=== PATIENT | female | born 1955 | race Caucasian/White ===

== ENCOUNTER 2016-09-07 08:46 | Day surgery (SDC) | payer BC ==
[2016-09-01 12:54] VITALS: BMI 29.2
--- NOTE | 2016-09-04 10:03 | HP ---
Admitting History and Physical - Primary Care Physician PCP: Hollis Venegas - Admission Chief Complaint: left breast cancer History of Present Illness: Patient is a 61 yo female noted to have bilateral breast asymmetries (LLQ and RUIQ) on screening mammo. Patient was noted to have left 6 oclock .8 and .9 cm retroareolar masses on US. Right US was c/w 12 and 2 oclock cyst ( Birads 3). Patient underwent US core bx of the left 6 and 7 oclock lesions. Both were c/w poorly dif invasive ductal ca. ER pos/ HI negative/ Her 2 positive. The MRI was c/w known cancer and negative for multifocal and contralateral dz. Patient is presenting for left WE, SNBx poss ANDx and mastopexy. History Source: Patient Limitations to Obtaining History: No Limitations - Past Medical History Gastrointestinal: Yes: Inflamatory Bowel Disease (Ulcerative colitis at age 32 recent bx of polyp path pending) - Past Surgical History Past Surgical History: Yes: Breast Biopsy (exc of left breast mass 2009-benign) , (4) - Advance Directives Advance Directives: Yes: Health Care Proxy - Smoking History Smoking history: Never smoked Have you smoked in the past 12 months: No - Alcohol/Substance Use Hx Alcohol Use: No Home Medications - Allergies Allergies/Adverse Reactions: Allergies Allergy/AdvReac Type Severity Reaction Status Date / Time No Known Allergies Allergy Verified 08/25/16 14:25 - Home Medications Home Medications: Ambulatory Orders L.acidoph,Paracasei, B.lactis [Probiotic] 1 each PO DAILY 09/01/16 Family Disease History - Family Disease History Family Disease History: CA: Grandparent (pat GM breast ca ?age), Sister (Breast ca age 37 BRCA neg no PEDRO) Review of Systems - Review of Systems Constitutional: reports: No Symptoms Cardiovascular: reports: No Symptoms Physical Examination Constitutional: Yes: Well Nourished, Calm Breast(s): Yes: Other (Left breast ecchymosis noted at 6 oclock positiion with palpable swelling. Patient without any other palpable masses or suspicious adenopathy noted bilaterally.) Problem List - Problems (1) Breast cancer, left breast Code(s): C50.912 - MALIGNANT NEOPLASM OF UNSPECIFIED SITE OF LEFT FEMALE BREAST Qualifiers: Breast location: lower inner quadrant of breast Patient gender: female Qualified Code(s): C50.312 - Malignant neoplasm of lower-inner quadrant of left female breast Assessment/Plan Plan: Left breast WE with NL, SNBx, possible ANDx with lympho and mastopexy
[2016-09-07] MEDS ORDERED: MIDAZOLAM HCL 2 MG/2 ML SINGLE DOSE VIAL ONE (13:23)
[2016-09-07] MEDS ORDERED: PROPOFOL 20 ML ONE ×2 (13:23)
[2016-09-07] MEDS ORDERED: ISOSULFAN BLUE 10 MG/ML VIAL SQ ONE (13:37)
[2016-09-07] MEDS ORDERED: ceFAZolin SODIUM 1 GM VIAL ONE (14:00)
[2016-09-07] MEDS ORDERED: ONDANSETRON 4 MG/2 ML VIAL ONE (14:00)
[2016-09-07] MEDS ORDERED: KETOROLAC TROMETHAMINE 30 MG/1 ML VIAL ONE (14:00)
[2016-09-07] MEDS ORDERED: DEXAMETHASONE SOD PHOSPHATE 4 MG/1 ML VIAL ONE (14:00)
[2016-09-07] MEDS ORDERED: PROMETHAZINE HCL 25 MG/1 ML VIAL IVPUSH PRN (14:19)
[2016-09-07] MEDS ORDERED: oxyCODONE HCL 5 MG TABLET PO PRN (14:19)
[2016-09-07] MEDS ORDERED: ONDANSETRON 4 MG/2 ML VIAL IVPUSH PRN (14:19)
[2016-09-07] MEDS ORDERED: LACTATED RINGERS SOLUTION 1,000 ML IV SCH (14:30)
[2016-09-07] MEDS ORDERED: KETOROLAC TROMETHAMINE 30 MG/1 ML VIAL IVPUSH PRN (15:13)
[2016-09-07] MEDS ORDERED: ONDANSETRON 4 MG/2 ML VIAL IVPB PRN (15:13)
[2016-09-07] MEDS ORDERED: GUM MASTIC/STORAX/MSAL/ALCOHOL 1 DRP DROPSBTL MC ONE (15:14)
[2016-09-07] MEDS ORDERED: DEXTROSE 5%-0.45% SALINE 1,000 ML IV SCH (15:15)
[2016-09-07 16:30] VITALS: TEMP 97.8
[2016-09-07] MEDS ORDERED: oxyCODONE HCL 5 MG TABLET ONE (16:34)
[2016-09-07 17:59] VITALS: BP 119/72; PULSE 68
--- NOTE | 2016-09-08 08:28 | OP ---
DATE OF OPERATION: 09/07/2016 PREOPERATIVE DIAGNOSIS: Left breast cancer, overlapping regions. POSTOPERATIVE DIAGNOSIS: Left breast cancer, overlapping regions. PROCEDURE: Left breast partial mastectomy with mammographic needle localization and left axillary sentinel lymph node biopsy with left breast partial tissue transfer. ANESTHESIA: General. PRIMARY SURGEON: Jere Venegas MD AGRICULTURE LABORATORY TECHNICIAN: MARCO Hook. PHYSICIAN FOR PARTIAL TISSUE TRANSFER: Jere Gillis MD, which will be dictated separately. COMPLICATIONS: There were no complications. INDICATIONS: Briefly, the patient is a 61-year-old, G5, P4, postmenopausal white female of [place] and [place] descent. She has a strong family history of her sister who had breast cancer at age 37. The patient was found to have 2 suspicious densities in the left breast at 6 o'clock retroareolar region measuring about 8 mm and 9 mm, which were biopsied in July of 2016, showing infiltrating ductal cancer, which was weakly ER positive, [place] negative, and HIR2-3+. MRI showed the 2 suspicious findings in the left breast, but no multifocal or contralateral disease and no adenopathy. She underwent genetic testing, which turned out to be negative. The 2 lesions were fairly close together and it was felt that she could have a partial mastectomy and she was seen by plastic surgery preoperatively for a tissue transfer closure. The patient was brought in for the procedure on September 07, 2016, and first underwent the lymphoscintigraphy at [facility] and was then brought to the [place] holding area. In the holding area, site verification was made and informed consent was obtained. She had a needle localization of the two clips in the 6 o'clock region of the left breast. DESCRIPTION OF PROCEDURE: She was brought into the operating room and laid on the OR table in the supine position. were placed on the lower extremities prior to induction. She received 1 g of Ancef prior to incision. Both breasts were sterilely prepped and draped in the usual fashion and 3 mL of Lymphosiderin Blue were injected intradermally and peritumor around the needle localization site in the 6 o'clock region of the left breast. The sentinel lymph node biopsy was first performed. An incision was made just below the hair bearing area of the left axilla and dissection was undertaken. Two blue hot lymph nodes were easily found. The first sentinel node had a 10 second gamma count of 9,526 and the second sentinel node had a 10 second gamma count of 4,411. No frozen section was done on these nodes given the Z11 criteria. After removal of these 2 nodes background count was 379. Hemostasis was achieved and the axial wound was closed using interrupted 2-0 plain suture and then the skin was closed using interrupted 3-0 deep dermal Vicryl suture and a running 4-0 subcuticular Biosyn suture. At this point, a wide excision was undertaken around the needle localization site around the 6 o'clock region of the left breast. A slightly vertical and periareolar incision was made around the left breast in the nipple areolar complex. Dissection was undertaken around the needle localization site and wide margins were taken around the wire, all of the way down to the pectoralis major muscle. The specimen was oriented with a long lateral short superior suture and specimen radiographs showed removal of the two clips in question. Superior margins were then taken on the superior, inferior, medial, lateral, deep, and superficial aspects with biopsy sutures marking the biopsy cavity site. Hemostasis was achieved and the wound was copiously irrigated with warm sterile saline. At this point, Dr. Gillis became the primary surgeon. He performed the tissue transfer closure technique by undermining the breast tissue, reapproximating the breast tissue. This will all be dictated separately by plastic surgery. At the end of the procedure, the patient was extubated, awake, and alert, and brought to the post anesthesia care unit in stable condition. She will be discharged home this same day once the discharge criteria are met. All sponge and needle counts were correct at the end of the case. Estimated blood loss is about 30 mL. She was hemodynamically stable throughout. The patient will be discharged home this same day and will follow up in the office in 1 week for formal wound pathology check. She was instructed to keep the current dressing in place for the next 48 hours, at which time she may shower normally. JERE VENEGAS M.D. [id number]
--- NOTE | 2016-09-08 08:41 | OP ---
DATE OF OPERATION: DATE OF DICTATION: 09/08/2016 This is a combined dictation with Dr. Venegas for breast reconstruction. PREOPERATIVE DIAGNOSIS: Acquired chest wall deformity, left breast. POSTOPERATIVE DIAGNOSIS: Acquired chest wall deformity, left breast. OPERATIVE PROCEDURE: Left breast reconstruction with other technique, number [id number]. SURGEON: Jere Gillis MD BELT SEWER SURGEON: MARCO Kumar OPERATIVE INDICATION: Patient was brought to the operating room by Dr. Venegas, where he performed a left breast cancer removal and sentinel lymph node biopsy. Upon completion of the resection, I began the operative reconstruction. The wound was examined. Copious irrigation was performed. Hemostasis was meticulously obtained throughout. I began the procedure by making an incision in the lower pole of the breast skin flap, freeing the tissue from the underlying skin and subcutaneous tissue and incising the margins around the area. This was carried out with the electrocautery throughout the procedure. A mobilization of breast tissue and flaps was created on the inferior, medial, and superior aspects of the breast, and then, rotation of was created. Using 2-0 Vicryl sutures, a reconstruction with other technique was carried out. A rotation advancement flap was advanced into the defect and closed with interrupted 2-0 Vicryl sutures down to the pectoralis major muscle in order to preserve the inframammary fold. Multiple sutures were placed in this area and release of the skin and subcutaneous tissue was also carried out. Multiple layers of sutures were carried out in the deep dermal and subcutaneous tissue using 3-0 Vicryl sutures, and then, the skin and subcutaneous tissue were closed with 4-0 Biosyn suture in interrupted and running fashion. Dry sterile dressings with Mastisol, Steri-Strips, and a compression dressing with a Surgi-Bra were placed. She was awakened, extubated, and transferred to the recovery room in satisfactory condition. She tolerated the procedure well. JERE GILLIS M.D. /[id number]
--- NOTE | 2016-09-12 15:38 | PATH ---
Surgical Pathology Report Patient Name: JESENIA COVINGTON [facility]. Rec. #: [id number] /Age/Gender: 1955 (Age: 61) / F Account: [id number] Location: [facility] AMBUL[facility]ORY Taken: 09/07/2016 Received: 09/07/2016 Reported: 09/12/2016 Physicians: Hollis Venegas M.D. Specimen(s) Received A: LEFT SENTINEL NODE #1 B: LEFT SENTINEL NODE #2 C: LEFT BREAST WIDE EXCISION D: LEFT BREAST LATERAL MARGIN E: LEFT BREAST SUPERIOR MARGIN F: LEFT BREAST INFERIOR MARGIN G: LEFT BREAST MEDIAL MARGIN H: LEFT BREAST DEEP MARGIN I: LEFT BREAST SUPERFICIAL MARGIN Clinical History Invasive Ca, left breast Final Diagnosis A. lymph node, left sentinel #1, excision: One lymph node, negative for metastatic carcinoma (0/1). B. liver, left sentinel #2, excision: One lymph node, negative for metastatic carcinoma (0/1). C. breast, left, wide excision: Invasive ductal carcinoma, poorly differentiated (tubule score: 3/3, nuclear grade: 3/3, mitotic score: 3/3; total Minesh score: 9/9). Invasive carcinoma measures 8 mm in greatest dimension, microscopically. Ductal carcinoma in situ (DCIS), solid and cribriform type, high nuclear grade is present admixed with invasive carcinoma and away from IT as a major component. Invasive carcinoma extends to the anterior/superficial margin along a broad front. DCIS is close to (< 1 mm) the inferior, anterior and lateral margins at a few foci and at 1 mm from the deep margin. see specimens D-I for final margins. Focal Lymphovascular invasion is identified. Prior biopsy site changes are present. Pathologic stage (pTNM): pT1b pn0. See also invasive carcinoma case Summary below. D. breast, left, lateral margin, excision: BENIGN Breast tissue showing intraductal papilloma, proliferative fibrocystic changes and small fibroadenoma. E. breast, left, superior margin, excision: Benign breast tissue. F. breast, left, inferior margin, excision: Ductal carcinoma in situ (DCIS), high nuclear grade. DCIS is focally close to (< 1mm) THE NEW margin. G. breast, left, medial margin, excision: Benign breast tissue showing proliferative fibrocystic changes. H. breast, left, deep margin, excision: invasive ductal carcinoma, poorly differentiated, measuring 3 mm in greatest dimension, microscopically. Ductal carcinoma in situ (DCIS), HIGH nuclear grade. The new margin is uninvolved by carcinoma; invasive carcinoma and DCIS are at 5 mm from the closest new margin. I. breast, left, superficial margin, excision: Invasive ductal carcinoma, poorly differentiated measuring 8 mm in greatest dimension, microscopically. Invasive carcinoma is close to (< 1 mm) AND AT the new margin AT MULTIPLE FOCI. Comments Breast Invasive Carcinoma: Surgical Pathology Cancer Case Summary Based on AJCC/UICC TNM, 7th edition Procedure _X_ Excision with image-guided localization Lymph Node Sampling _X_ [place] lymph node(s) Specimen Laterality _X_ Left Tumor Size: Size of Largest Invasive Carcinoma: 8 mm Tumor Focality _X_ Single focus of invasive carcinoma Macroscopic and Microscopic Extent of Tumor Nipple _X_ Not applicable (excisions less than total mastectomy) Ductal Carcinoma In Situ (DCIS) _X_ DCIS is present _X_ as a major component (>25% of tumor, extensive intraductal component) Histologic Type of Invasive Carcinoma : _X_ Invasive carcinoma of no special type (ductal, not otherwise specified) Histologic Grade: ([place] Histologic Score) Tubular Differentiation _X__Score 3 Nuclear Pleomorphism _X_ Score 3 Mitotic Rate _X_ Score 3 Overall Grade _X_ Grade 3: scores of 8 or 9 (poorly differentiated) Margins _X_ Margin(s) positive for invasive carcinoma: anterior/superficial _X_ Margin(s) close to (< 1 mm) DCIS: inferior Lymph-Vascular Invasion _X__ Present Lymph Nodes Total number of lymph nodes examined (sentinel and nonsentinel): 2 Number of sentinel lymph nodes examined: 2 Number of lymph nodes with macrometastases ( > 2 mm): 0 Number of lymph nodes with micrometastases (>0.2 mm to 2 mm and/or >200cells):0 Number of lymph nodes with isolated tumor cells (=0.2 mm and =200 cells): 0 Extranodal Extension _X_ Not applicable Pathologic Staging (pTNM) Primary Tumor (Invasive Carcinoma): pT1b Regional Lymph Nodes (pN): pN0 (sn) Biomarker Studies Results of ER and SD studies performed on this specimen (block C1 ) at [facility] are as follows: ER (clone [id number] mouse monoclonal antibody by [employer]): < 1 % nuclear staining (Negative). SD (clone16 mouse monoclonal antibody by [employer] : 0 % nuclear staining (Negative). Results of Her2 (IHC) & Ki-67 studies performed on this specimen (block C1 ) at [place], [place] ( [id number] ) are as follows: Her2 IHC (EP3 from [employer], formerly known as [id number], using Posey Polymer Refine detection kit): 3+ (Positive). Ki67: ~80% (High). Time to formalin fixation time is not given and formalin fixation time cannot be accurately determined. Electronically Signed Vicki Isabel M.D. Gross Description A. Received in formalin, labeled "sentinel node #1 left," is a 1.2 x 0.7 x 0.5 cm hurley, irregular lymph node with attached fat. The specimen is bisected and entirely submitted in one cassette. B. Received in formalin, labeled "sentinel node #2 left," is a 1.0 x 0.8 x 0.5 cm hurley, irregular lymph node with attached fat. The specimen is bisected and entirely submitted in one cassette. C. Received in formalin, labeled "left breast wide excision," is a 4.8 x 3.7 x 2.0 cm. hurley-yellow, irregular, portion of fibroadipose tissue with a needle localization wire present. There is a short suture marking the superior aspect and a long suture marking the lateral aspect, per the surgeon. There is no skin or nipple present. The specimen is inked as follows: superior and lateral blue; inferior green; medial yellow; anterior red; deep black. The specimen is serially sectioned from medial to lateral. Sectioning reveals a 1.2 x 1.0 x 0.9 cm hurley, firm ill-defined mass abutting the anterior margin, at 0.3 cm from the deep margin, 0.5 cm from the inferior margin and 1 cm from the superior margin. The remaining margins appear widely clear of the mass. The remaining breast parenchyma displays foci of dense white fibrous tissue. Oxyacetylene Welder sections are submitted in 8 cassettes as follows: 1 to 6- mass with inferior, anterior, deep and superior margins; 7-medial margin; 8-lateral margin. Time to formalin fixation: Not given D. Received in formalin, labeled "lateral margin left breast," is a 1.8 x 1.7 x 0.8 cm irregular portion of fibroadipose tissue with a suture marking the biopsy cavity side, per the surgeon. The new margin is inked green and the specimen is serially sectioned. The specimen is entirely submitted in 2 cassettes. E. Received in formalin, labeled "superior margin left breast," is a 1.7 x 1.4 x 0.7 cm irregular portion of fibroadipose tissue with a suture marking the biopsy cavity side, per the surgeon. The new margin is inked green and the specimen is serially sectioned. The specimen is entirely submitted in 2 cassettes. F. Received in formalin, labeled "inferior margin left breast," is a 2.4 x 1.5 x 0.8 cm irregular portion of fibroadipose tissue with a suture marking the biopsy cavity side, per the surgeon. The new margin is inked green and the specimen is serially sectioned. The specimen is entirely submitted in 2 cassettes. G. Received in formalin, labeled "medial margin left breast," is a 2.3 x 1.2 x 0.5 cm irregular portion of fibroadipose tissue with a suture marking the biopsy cavity side, per the surgeon. The new margin is inked green and the specimen is serially sectioned. The specimen is entirely submitted in 2 cassettes. H. Received in formalin, labeled "deep margin left breast," is a 1.8 x 1.7 x 0.8 cm irregular portion of fibroadipose tissue with a suture marking the biopsy cavity side, per the surgeon. The new margin is inked green and the specimen is serially sectioned. The specimen is entirely submitted in 2 cassettes. I. Received in formalin, labeled "superficial margin left breast," is a 1.3 x 0.8 x 0.5 cm irregular portion of fibroadipose tissue with a suture marking the biopsy cavity side, per the surgeon. The new margin is inked green and the specimen is serially sectioned. The specimen is entirely submitted in one cassette. DL09/08/2016 saudi09/08/2016
== END 2016-09-07 18:00 | disposition home or self-care (01) ==
LOC: FASU 08:46
PROVIDERS: ATTEND Surgery Surgical Oncology
PROC: 0HBU0ZZ Excision of Left Breast, Open Approach (ICD-10-PCS; principal; 2016-09-07 13:30)
PROC: 0HRU07Z Replacement of Left Breast with Autologous Tissue Substitute, Open Approach (ICD-10-PCS; 2016-09-07 13:30)
DX: C50.312 Malignant neoplasm of lower-inner quadrant of left female breast (principal); Z80.3 Family history of malignant neoplasm of breast; M95.4 Acquired deformity of chest and rib
CPT/HCPCS: 19281; 78195-TC; 88307-TC; 88342-TC; 94760; A9541

== ENCOUNTER 2016-09-21 11:58 | Inpatient (IN) | payer BC, OTHER ==
--- NOTE | 2016-09-15 15:26 | HP ---
Admitting History and Physical - Primary Care Physician PCP: Hollis Venegas - Admission Chief Complaint: Left breast cancer S/P wide excision with positive margins 09/07 History of Present Illness: 61 year old postmenapausal female S/P left breast wide excision negative sentenl node biopsy 09/07/2016 with positive margins 8 mm poorly differentiated invasive ductal carcinoma with DCIS on inferior, deep and superficial margins. Her for total mastectomy left breast History Source: Patient Limitations to Obtaining History: No Limitations - Past Medical History Gastrointestinal: Yes: Inflamatory Bowel Disease (Ulcerative colitis at age 32 recent bx of polyp path pending) - Past Surgical History Past Surgical History: Yes: Breast Biopsy (exc of left breast mass 2009-benign) , (4) Additional Past Surgical History: recent polypectomy Left breast wide excision negative sentenel node biopsy 09/07/2016 positive margins DCIS on inferior deep and superficial - Smoking History Smoking history: Never smoked Have you smoked in the past 12 months: No - Alcohol/Substance Use Hx Alcohol Use: No Home Medications - Allergies Allergies/Adverse Reactions: Allergies Allergy/AdvReac Type Severity Reaction Status Date / Time No Known Allergies Allergy Verified 09/07/16 10:00 - Home Medications Home Medications: Ambulatory Orders L.acidoph,Paracasei, B.lactis [Probiotic] 1 each PO DAILY 09/01/16 Oxycodone HCl/Acetaminophen [Percocet 5-325 mg Tablet -] 1 - 2 tab PO Q6H PRN # 30 tablet MDD 6 09/07/16 Family Disease History - Family Disease History Family Disease History: CA: Grandparent (pat GM breast ca ?age), Sister (Breast ca age 37 BRCA neg no PEDRO) Physical Examination Constitutional: Yes: Well Nourished, No Distress Breast(s): Yes: Other (left breast wounds healing well without signs of hematoma or infection .) Problem List - Problems (1) Breast cancer, left breast Code(s): C50.912 - MALIGNANT NEOPLASM OF UNSPECIFIED SITE OF LEFT FEMALE BREAST Qualifiers: Breast location: lower inner quadrant of breast Patient gender: female Qualified Code(s): C50.312 - Malignant neoplasm of lower-inner quadrant of left female breast Assessment/Plan Left breast total mastectomy with reconstruction
[2016-09-18 15:54] VITALS: BMI 25.7
[2016-09-21] MEDS ORDERED: HYDROmorphone *PCA* 10MG/50ML DISP.SYRIN PCA ONE (14:14)
[2016-09-21] MEDS ORDERED: GENTAMICIN SO4 80 MG/2 ML VIAL ONE (16:45)
[2016-09-21] MEDS ORDERED: ceFAZolin SODIUM 1 GM VIAL ONE (16:45)
[2016-09-21] MEDS ORDERED: HEPARIN NA (PORCINE) 5,000 UNITS/ML 1ML VIAL ONE (17:09)
[2016-09-21] MEDS ORDERED: GUM MASTIC/STORAX/MSAL/ALCOHOL 1 DRP DROPSBTL MC ONE (17:26)
[2016-09-21] MEDS ORDERED: ONDANSETRON 4 MG/2 ML VIAL IVPB PRN (18:49)
[2016-09-21] MEDS ORDERED: ZOLPIDEM TARTRATE 5 MG TABLET PO PRN (18:49)
[2016-09-21] MEDS ORDERED: ACETAMINOPHEN 325 MG TABLET (FP) PO PRN (18:49)
[2016-09-21] MEDS ORDERED: DEXTROSE 5%-0.45% SALINE 1,000 ML IV SCH (19:00)
[2016-09-21] MEDS ORDERED: BUPIVACAINE HCL/PF 2.5 MG/ML - 30 ML VIAL IJ ONE (19:18)
[2016-09-21] MEDS ORDERED: ONDANSETRON 4 MG/2 ML VIAL IVPUSH PRN (19:56)
[2016-09-21] MEDS ORDERED: HYDROmorphone *PCA* 10MG/50ML DISP.SYRIN PCA SCH (20:00)
[2016-09-21] MEDS ORDERED: CEFAZOLIN 1 GM/D5W 50 ML IVPB SCH (21:00)
[2016-09-22] MEDS: CEFAZOLIN 1 GM/D5W 50 ML IVPB SCH ×4 (01:46→21:15)
[2016-09-22] MEDS: HEPARIN NA (PORCINE) 5,000 UNITS/ML 1ML VIAL SQ SCH ×3 (08:00→21:18)
[2016-09-22 08:25] LABS: MCH 30.5 pg (25.7-33.7); MCHC 32.8 g/dl (32.0-36.0); MEAN PLT VOLUME 9.1 fl (7.5-11.1); PLATELET COUNT 279 K/MM3 (134-434); RDW 12.6 % (11.6-15.6); WHITE BLOOD COUNT 17.3 K/mm3 (4.0-10.0)
--- NOTE | 2016-09-22 09:12 | PN ---
Progress Note, Physician Chief Complaint: S/P left mastectomy with reconstruction and infusaport placement POD #1 History of Present Illness: Patient seen this am by the bedside and reports good pain control and tolerating po well. - Current Medication List Current Medications: Active Medications Acetaminophen (Tylenol -) 650 mg PO Q4H PRN PRN Reason: FEVER Heparin Sodium (Porcine) (Heparin -) 5,000 unit SQ BID MIKAYLA Hydromorphone HCl (Dilaudid Energy And Conservation Technician -) 0 mg SMALL BUSINESS SALES REPRESENTATIVE SMALL BUSINESS SALES REPRESENTATIVE MIKAYLA PRN Reason: Protocol Stop: 09/28/16 19:56 Dextrose/Sodium Chloride (D5-1/2ns -) 1,000 mls @ 100 mls/hr IV ASDIR MIKAYLA Cefazolin Sodium (Ancef 1 Gm Premixed Ivpb -) 50 mls @ 100 mls/hr IVPB Q6H-IV MIKAYLA Last Admin: 09/22/16 01:46 Dose: 100 mls/hr Ondansetron HCl (Zofran Injection) 4 mg IVPB Q6H PRN PRN Reason: NAUSEA AND/OR VOMITING Zolpidem Tartrate (Ambien -) 5 mg PO HS PRN PRN Reason: Insomnia - Objective Vital Signs: Vital Signs Temperature 98.3 F 09/22/16 06:00 Pulse Rate 67 09/22/16 06:00 Respiratory Rate 17 09/22/16 06:00 Blood Pressure 90/50 09/22/16 06:09 O2 Sat by Pulse Oximetry (%) 99 09/21/16 22:00 Constitutional: Yes: No Distress, Calm Breast(s): Yes: Other (Left chest steristrips intact with drains in place. Flaps are warm with good color and minimal ecchymosis.) Labs: CBC, BMP 09/22/16 07:55 Problem List - Problems (1) Breast cancer, left breast Code(s): C50.912 - MALIGNANT NEOPLASM OF UNSPECIFIED SITE OF LEFT FEMALE BREAST Qualifiers: Breast location: lower inner quadrant of breast Patient gender: female Qualified Code(s): C50.312 - Malignant neoplasm of lower-inner quadrant of left female breast Assessment/Plan Plan: DC SMALL BUSINESS SALES REPRESENTATIVE this pm and transition to po meds Continue axbx Teach YESI monitoring Make appt to see Dr. Venegas and Dr. Gillis next week.
--- NOTE | 2016-09-22 10:13 | PN ---
Progress Note (short form) - Note Progress Note: 61F POD1 s/p left masectomy with reconstruction under GA-ETT doing well. Pt states that pain is well controlled with dilaudid IV CHAIN SAW MECHANIC, AVSS, reports no anesthetic complications. Pt tolerating po intake, will d/c dilaudid IV CHAIN SAW MECHANIC.
[2016-09-22] MEDS: OXYCODONE/APAP 5/325MG COMBO TABLET PO PRN ×2 (10:29→18:00)
--- NOTE | 2016-09-22 11:47 | PN ---
Progress Note, Physician Chief Complaint: Pt sitting comfortably in chair with kamaljit hugger on. History of Present Illness: Pt is S/P Left mastectomy with direct implant placement. - Current Medication List Current Medications: Active Medications Acetaminophen (Tylenol -) 650 mg PO Q4H PRN PRN Reason: FEVER Heparin Sodium (Porcine) (Heparin -) 5,000 unit SQ BID MIKAYLA Last Admin: 09/22/16 08:00 Dose: 5,000 unit Dextrose/Sodium Chloride (D5-1/2ns -) 1,000 mls @ 100 mls/hr IV ASDIR MIKAYLA Cefazolin Sodium (Ancef 1 Gm Premixed Ivpb -) 50 mls @ 100 mls/hr IVPB Q6H-IV MIKAYLA Last Admin: 09/22/16 09:00 Dose: 100 mls/hr Ondansetron HCl (Zofran Injection) 4 mg IVPB Q6H PRN PRN Reason: NAUSEA AND/OR VOMITING Oxycodone/Acetaminophen (Percocet 5/325 -) 2 combo PO Q6H PRN PRN Reason: PAIN LEVEL 6-10 Last Admin: 09/22/16 10:29 Dose: 2 combo Zolpidem Tartrate (Ambien -) 5 mg PO HS PRN PRN Reason: Insomnia - Objective Vital Signs: Vital Signs Temperature 98.3 F 09/22/16 06:00 Pulse Rate 67 09/22/16 06:00 Respiratory Rate 17 09/22/16 06:00 Blood Pressure 90/50 09/22/16 06:09 O2 Sat by Pulse Oximetry (%) 99 09/21/16 22:00 Constitutional: Yes: Well Nourished Eyes: Yes: WNL HENT: Yes: WNL Neck: Yes: WNL Cardiovascular: Yes: WNL Respiratory: Yes: WNL Gastrointestinal: Yes: WNL ...Rectal Exam: Yes: Deferred Genitourinary: Yes: WNL Breast(s): Yes: Left, Other (Pt breast with swelling and ecchymosis noted. YESI drains holding suction. Steri strips in place.) Wound/Incision: Yes: Clean/Dry, Steri Strips Additional Findings/Remarks: Pt doing well POD 1 s/p Left mastectomy with direct implant placement. cont pain management cont kamaljit hugger cont abx Possible d/c arlyn cont YESI drains. Labs: CBC, BMP 09/22/16 07:55
--- NOTE | 2016-09-22 11:57 | OP ---
DATE OF OPERATION: 09/21/2016 PREOPERATIVE DIAGNOSIS: Left breast overlapping regions. PROCEDURE: Left breast total mastectomy with direct implant reconstruction with AlloDerm and a right-sided subclavian vein Port-A-Cath under fluoroscopy. ANESTHESIA: General laryngeal mask airway anesthesia. PRIMARY SURGEON: Jere Reddy MD FAMILY LIFE COUNSELOR: MARCO Hook PLASTIC SURGEON: Jere Gillis MD FAMILY LIFE COUNSELOR: MARCO Kumar COMPLICATIONS: None. HISTORY: Briefly, the patient is a 61-year-old postmenopausal white female of [place] and [place] descent with a strong family history with her sister with breast cancer at age 37 and a paternal cousin had breast cancer at age 50. The patient was diagnosed with left breast 6 o'clock retroareolar breast cancer seen on mammography and ultrasound July 2016. Core biopsy showed poorly differentiated, invasive duct cancer, which was ER weakly positive, OH negative, and HER2 of 3+. MRI showed localized disease, and she underwent the left breast partial mastectomy September 07, 2016 showing an 8-mm poorly differentiated invasive duct cancer with 2 negative sentinel nodes with focal lymphovascular invasion. She did have positive margins with invasive cancer as well as DCIS, and mastectomy was now recommended. She was seen by the medical oncologist preoperatively and will need chemotherapy, so a Port-A-Cath was recommended at the same time of the procedure. She underwent genetic testing in July 2016, which was negative. DESCRIPTION OF PROCEDURE: The patient was brought in for the procedure on September 21, 2016. In the holding area, a site verification was made and informed consent was obtained. She was marked preoperatively by the plastic surgeon. She was brought into the operating room and laid on the OR table in the supine position. Venodynes were placed on the lower extremities. She received 2 g of Ancef prior to incision. She underwent general laryngeal mask airway anesthesia. Both breasts were sterilely prepped and draped in the usual fashion with the upper chest wall on the right side prepped as well. The mastectomy was 1st performed on the left side through a skin-sparing elliptical incision encompassing the nipple areolar complex as well as the previous excision scar. Dissection was undertaken, and skin flaps were raised superiorly to the level of the clavicle, medially to the sternum, laterally to the latissimus, and inferiorly below the level of the inframammary fold. The breast was taken out of the pectoralis major muscle from medial to lateral and completely moved intact. It was oriented with a long lateral short superior suture and weighted to the left for appropriate cosmetic result. At this point, Dr. Gillis scrubbed into the case and performed a left-sided direct implant reconstruction with AlloDerm, which was sutured into the inferolateral aspect of the left pectoralis major muscle. This will be dictated separately by Dr. Gillis. While he was performing the reconstruction on the left, the right subclavian vein Port-A-Cath was placed. Separate instruments, gloves, and gowns were changed. The right subclavian vein was cannulated using the Seldinger technique, and a wire was placed under fluoroscopy into the superior vena cava, which was clipped to the drape. At this point, an infraclavicular pocket was fashioned by making a 3-cm incision and forming the infraclavicular pocket using electrocautery for hemostasis. The Port-A-Cath catheter was cut to the appropriate length and attached to the chamber and placed into the infraclavicular pocket and secured in place using 2 separate 3-0 Prolene sutures. At this point, the introducer with the dilator was placed over the wire under fluoroscopy into the superior vena cava without difficulty. The dilator and the wire were removed. The catheter was then threaded down to the tear away sheath, and the tear away sheath was torn away leaving the catheter in good position in the superior vena cava. There was excellent blood return from the Port-A-Cath, and it was flushed with dilute heparin at 10 units per mL. It was then flushed with 1.5 mL of concentrated heparin at 1000 units per mL. The wound was closed using interrupted 3-0 deep dermal Vicryl suture and a running 4-0 subcuticular Biosyn suture. Mastisol and Steri-Strips were applied over the Port-A-Cath wound with a sterile dressing placed over this. Dr. Gillis finished with the implant reconstruction on the left and had 2 drains placed around the left implant brought through separate stab incisions on the lateral skin flap, which was secured in place using a 3-0 nylon suture. All wounds were closed separately by Plastic Surgery on the mastectomy site. She was placed in a surgical bra postoperatively, and the drains were placed on J-P bulb suction. She was extubated at the end of the case and awake and alert and brought to the post anesthesia care unit to be recovered where she will be admitted postoperatively for pain and wound management. All sponge and needle counts were correct at the end of the case, and estimated blood loss was about 40 mL. The patient was hemodynamically stable throughout. JERE REDDY M.D. [id number]
[2016-09-23] MEDS: CEFAZOLIN 1 GM/D5W 50 ML IVPB SCH ×2 (03:00→09:10)
[2016-09-23] MEDS: OXYCODONE/APAP 5/325MG COMBO TABLET PO PRN (03:19)
[2016-09-23 06:19] VITALS: BP 108/70; PULSE 57; TEMP 97.9
[2016-09-23] MEDS: HEPARIN NA (PORCINE) 5,000 UNITS/ML 1ML VIAL SQ SCH (10:10)
--- NOTE | 2016-09-23 10:14 | PN ---
Progress Note, Physician Chief Complaint: Left Breast Cancer overlapping regions History of Present Illness: The patient was diagnosed with a left breast cancer and underwent a partial mastectomy on 09/07/16 but had positive margins and now underwent a completion mastectomy on 09/21/16 with direct to implant reconstruction and right SCV portacath insertion to begin chemotherapy. She was admitted postoperatively for pain and wound management. - Current Medication List Current Medications: Active Medications Acetaminophen (Tylenol -) 650 mg PO Q4H PRN PRN Reason: FEVER Heparin Sodium (Porcine) (Heparin -) 5,000 unit SQ BID [facility] Last Admin: 09/22/16 21:18 Dose: 5,000 unit Dextrose/Sodium Chloride (D5-1/2ns -) 1,000 mls @ 100 mls/hr IV ASDIR [facility] Last Admin: 09/22/16 19:30 Dose: 100 mls/hr Cefazolin Sodium (Ancef 1 Gm Premixed Ivpb -) 50 mls @ 100 mls/hr IVPB Q6H-IV [facility] Last Admin: 09/23/16 03:00 Dose: 100 mls/hr Ondansetron HCl (Zofran Injection) 4 mg IVPB Q6H PRN PRN Reason: NAUSEA AND/OR VOMITING Oxycodone/Acetaminophen (Percocet 5/325 -) 2 combo PO Q6H PRN PRN Reason: PAIN LEVEL 6-10 Last Admin: 09/23/16 03:19 Dose: 2 combo Zolpidem Tartrate (Ambien -) 5 mg PO HS PRN PRN Reason: Insomnia - Objective Vital Signs: Vital Signs Temperature 97.9 F 09/23/16 06:00 Pulse Rate 57 L 09/23/16 06:00 Respiratory Rate 18 09/23/16 06:00 Blood Pressure 108/70 09/23/16 06:00 O2 Sat by Pulse Oximetry (%) 97 09/23/16 06:00 Constitutional: Yes: Well Nourished, No Distress, Calm Eyes: Yes: WNL HENT: Yes: Atraumatic, Normocephalic Neck: Yes: WNL Cardiovascular: Yes: Regular Rate and Rhythm Respiratory: Yes: Regular, CTA Bilaterally Gastrointestinal: Yes: Normal Bowel Sounds, Soft ...Rectal Exam: Yes: Deferred Genitourinary: Yes: WNL Breast(s): Yes: Other (Left breast wounds clean, dry , and intact. Drains functioning well.) Musculoskeletal: Yes: WNL Extremities: Yes: WNL Wound/Incision: Yes: Clean/Dry, Well Approximated Neurological: Yes: Alert, Oriented ...Motor Strength: WNL Psychiatric: Yes: WNL Labs: CBC, BMP 09/22/16 07:55 Problem List - Problems (1) Breast cancer, left breast Assessment/Plan: The patient is doing well POD#2 s/p left breast total mastectomy and direct to implant reconstruction with alloderm. Wound are clean, dry, and intact. Drains functioning well. 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 Dressing changed at bedside today. Stable for discharge this AM. Home on percocet for pain and cefalexin abx. Follow up with Drs. Gillis and Theo in 1 week. No heavy lifting or exercise. Record YESI outputs daily. No bath or shower until drains removed. Keep compressive bra on day/night. Code(s): C50.912 - MALIGNANT NEOPLASM OF UNSPECIFIED SITE OF LEFT FEMALE BREAST Qualifiers: Breast location: overlapping sites of breast Patient gender: female Qualified Code(s): C50.812 - Malignant neoplasm of overlapping sites of left female breast
--- NOTE | 2016-09-23 10:23 | DS ---
Physical Examination Vital Signs: Vital Signs Temperature 97.9 F 09/23/16 06:00 Pulse Rate 57 L 09/23/16 06:00 Respiratory Rate 18 09/23/16 06:00 Blood Pressure 108/70 09/23/16 06:00 O2 Sat by Pulse Oximetry (%) 97 09/23/16 06:00 Constitutional: Yes: Well Nourished, No Distress, Calm Eyes: Yes: WNL HENT: Yes: Atraumatic, Normocephalic Neck: Yes: Supple, Trachea Midline Cardiovascular: Yes: Regular Rate and Rhythm Respiratory: Yes: Regular, CTA Bilaterally Gastrointestinal: Yes: Normal Bowel Sounds, Soft ...Rectal Exam: Yes: Deferred Renal/: Yes: WNL Breast(s): Yes: Other (Left mastectomy wound clean, dry, and intact. Drains functioning well.) Musculoskeletal: Yes: WNL Extremities: Yes: WNL Integumentary: Yes: WNL Wound/Incision: Yes: Clean/Dry, Well Approximated Neurological: Yes: Alert, Oriented ...Motor Strength: WNL Psychiatric: Yes: WNL Labs: CBC, BMP 09/22/16 07:55 Discharge Summary Reason For Visit: LEFT BREAST CA Left breast cancer overlapping regions Procedures: Principal: Left breast total mastectomy with direct to implant reconstruction with Alloderm and right subclavian vein viviana cath insertion with flouroscopy. Hospital Course: The patient was admitted after the left mastectomy and reconstruction for wound and pain management. She did well postoperatively and had good pain control and her WELDER SHIELDED METAL ARC was stopped POD#1. She had good pain control and her wounds were clean and dry and she was stable for discharge on POD#2. Condition: Good - Instructions Diet, Activity, Other Instructions: Regular diet. No heavy lifting or exercise. No bath or shower until drains removed. Keep compressive dressing in place day/night. Record YESI outputs daily. Referrals: Hollis Venegas MD [Staff Physician] - Cornell Gillis MD [Staff Physician] - Disposition: HOME - Home Medications Comprehensive Discharge Medication List: Ambulatory Orders L.acidoph,Paracasei, B.lactis [Probiotic] 1 each PO DAILY 09/01/16
--- NOTE | 2016-09-25 14:44 | PATH ---
Surgical Pathology Report Patient Name: JESENIA COVINGTON Med. Rec. #: [id number] /Age/Gender: 1955 (Age: 61) / F Account: [id number] Location: [facility] Taken: 09/21/2016 Received: 09/21/2016 Reported: 09/25/2016 Physicians: Hollis Venegas M.D. Specimen(s) Received A: LEFT BREAST MASTECTOMY B: ANTERIOR MARGIN WITH SKIN LEFT BREAST Clinical History None given Final Diagnosis A. LEFT BREAST, SKIN SPARING MASTECTOMY: DUCTAL CARCINOMA IN SITU (DCIS), HIGH NUCLEAR GRADE, SOLID PATTERN WITH CENTRAL NECROSIS. DCIS MEASURES LESS THAN 0.1 CM IN GREATEST DIMENSION, AND IS PRESENT IN ONE OF 21 SUBMITTED BLOCKS. DCIS IS 0.6 CM FROM THE ANTERIOR MARGIN. FAT NECROSIS AND SUTURE GRANULOMATA PRESENT CONSISTENT WITH PRIOR EXCISION SITE. INTRADUCTAL PAPILLOMA WITHOUT ATYPIA, WITH ASSOCIATED USUAL DUCTAL HYPERPLASIA (UDH) PRESENT. MULTIPLE SMALL FIBROADENOMAS ARE PRESENT. NIPPLE AND SKIN WITH NONSPECIFIC DERMAL CHRONIC INFLAMMATION. REMAINING BREAST TISSUE WITH FIBROCYSTIC CHANGES INCLUDING USUAL DUCTAL HYPERPLASIA (UDH), STROMAL FIBROSIS, DUCTAL DILATATION, CYSTIC METAPLASIA, AND RARE CALCIFICATION. B. SKIN, LEFT BREAST ANTERIOR MARGIN, EXCISION: BENIGN SKIN WITH DERMAL CHRONIC INFLAMMATION. NO CARCINOMA IDENTIFIED. Comment: The stage remains pT1b pN0. Also see prior specimens [id number], [id number], and [id number]. Electronically Signed Casimiro Meza M.D. Gross Description A. Received in formalin, labeled "left breast mastectomy," is a 329 gram, 17.0 x 14.0 x 3.5 cm. left mastectomy specimen with a short suture marking the superior aspect and a long suture marking the lateral aspect of the specimen, per the surgeon. The anterior surface displays a 6.3 x 3.3 cm hurley, elliptical, unremarkable portion of skin with a 0.9 cm diameter nipple. The deep margin is inked black and the anterior soft tissue margin is inked blue. The specimen is serially sectioned from medial to lateral. Sectioning reveals a 6.5 cm greatest dimension previous biopsy cavity in the lower inner quadrant (LIQ). The cavity is surrounded by focally firm fibrous tissue. The remaining breast parenchyma displays abundant dense, white, focally firm fibrous tissue. No masses are identified. Director Of Customer Service sections are submitted in 21 cassettes as follows: 1-serially sectioned nipple; 2-subareolar shave; 3-9-LIQ previous biopsy cavity with surrounding fibrous tissue; 10-uninvolved LIQ tissue; 11-12-upper inner quadrant; 13-14-upper outer quadrant; 15-16-lower outer quadrant; 50-33-qymzrkrkrclo tissue; 19-anterior soft tissue margin; 20-skin; 21-deep margin. Time to formalin fixation: 35 minutes Total formalin fixation time: Approximately 24 hours. B. Received in formalin, labeled "anterior margin with skin left breast," is a 6.5 x 0.8 cm hurley, elliptical portion of skin excised to depth of 0.4 cm. The specimen is inked green and serially sectioned. The specimen is entirely and sequentially submitted in 4 cassettes. 09/22/2016 [facility]09/22/2016
== END 2016-09-23 18:58 | disposition home or self-care (01) | DRG 581 ==
LOC: FM/S 12:06
PROVIDERS: ADMIT Surgery Surgical Oncology; ATTEND Surgery Surgical Oncology
PROC: 0HRU0JZ Replacement of Left Breast with Synthetic Substitute, Open Approach (ICD-10-PCS; 2016-09-21)
PROC: 02HV33Z Insertion of Infusion Device into Superior Vena Cava, Percutaneous Approach (ICD-10-PCS; 2016-09-21)
PROC: B518ZZA Fluoroscopy of Superior Vena Cava, Guidance (ICD-10-PCS; 2016-09-21)
PROC: 0HTU0ZZ Resection of Left Breast, Open Approach (ICD-10-PCS; principal; 2016-09-21 17:51)
PROC: 0JH60XZ Insertion of Tunneled Vascular Access Device into Chest Subcutaneous Tissue and Fascia, Open Approach (ICD-10-PCS; 2016-09-21 17:51)
DX: C50.312 Malignant neoplasm of lower-inner quadrant of left female breast (principal); K52.3 Indeterminate colitis
CPT/HCPCS: 36415; 71010-TC; 76000-TC; 85027; 88304-TC; 88307-TC; 94760; J1644

== ENCOUNTER 2017-05-10 05:54 | Day surgery (SDC) | payer BC, OTHER ==
[2017-05-04 13:00] VITALS: BMI 25.0
[2017-05-10] MEDS ORDERED: ceFAZolin SODIUM 1 GM VIAL ONE ×2 (07:23→08:17)
[2017-05-10] MEDS ORDERED: GENTAMICIN SO4 80 MG/2 ML VIAL ONE (07:23)
[2017-05-10] MEDS ORDERED: LIDOCAINE HCL 1%, 10 MG/ML (20ML VIAL) ONE ×2 (07:24→08:02)
[2017-05-10] MEDS ORDERED: BUPIVACAINE HCL/PF 2.5 MG/ML - 30 ML VIAL IJ ONE (07:24)
[2017-05-10] MEDS ORDERED: PROPOFOL 20 ML ONE (07:28)
[2017-05-10] MEDS ORDERED: ROCURONIUM BROMIDE 50 MG/5 ML VIAL ONE (07:28)
[2017-05-10] MEDS ORDERED: MIDAZOLAM HCL 2 MG/2 ML SINGLE DOSE VIAL ONE (07:28)
[2017-05-10] MEDS ORDERED: EPINEPHrine/PF 1 MG/1 ML (1:1,000) AMPULE ONE (08:04)
[2017-05-10] MEDS ORDERED: DEXAMETHASONE SOD PHOSPHATE 4 MG/1 ML VIAL ONE (08:23)
[2017-05-10] MEDS ORDERED: ONDANSETRON 4 MG/2 ML VIAL ONE (08:23)
[2017-05-10] MEDS ORDERED: LIDOCAINE 1%/EPI 1:100000 (20 ML MULTI DOSE VIAL) ONE ×2 (08:30→08:41)
[2017-05-10] MEDS ORDERED: LIDOCAINE 1%/EPI 1:100000 (50 ML MULTI DOSE VIAL) INF ONE (08:31)
[2017-05-10] MEDS ORDERED: ePHEDrine SULFATE 50 MG/1 ML AMPULE ONE (08:46)
[2017-05-10] MEDS ORDERED: BUPIVACAINE HCL/PF 0.25% (2.5MG/ML) 10 ML VIAL IJ ONE (09:44)
[2017-05-10] MEDS ORDERED: ONDANSETRON 4 MG/2 ML VIAL IVPUSH PRN (10:02)
[2017-05-10] MEDS ORDERED: ACETAMINOPHEN 325 MG TABLET (FP) PO PRN (10:02)
[2017-05-10] MEDS ORDERED: oxyCODONE HCL 5 MG TABLET PO PRN (10:02)
[2017-05-10] MEDS ORDERED: LACTATED RINGERS SOLUTION 1,000 ML IV SCH (10:15)
[2017-05-10 11:16] VITALS: TEMP 97.9
[2017-05-10] MEDS ORDERED: oxyCODONE HCL 5 MG TABLET ONE (11:18)
--- NOTE | 2017-05-10 11:55 | OP ---
DATE OF OPERATION: 05/10/2017 SURGEON: Jere Gillis MD VALIDATION TECHNICIAN SURGEON: Chyna Grubbs PA-C PREOPERATIVE DIAGNOSES: 1. Bilateral acquired chest wall deformities status post mastectomy. . 2. Asymmetry of reconstructed chest wall. 3. Absent nipple areolar complex post reconstruction. 4. Mechanical complication of breast implant. POSTOPERATIVE DIAGNOSES: 1. Bilateral acquired chest wall deformities status post mastectomy. . 2. Asymmetry of reconstructed chest wall. 3. Absent nipple areolar complex post reconstruction. 4. Mechanical complication of breast implant. OPERATIVE PROCEDURE: 1. Right breast reconstruction utilizing other technique. 2. Left breast reconstruction utilizing other technique. 3. Right breast augmentation with silicone implant for breast asymmetry. 4. Revision of left breast mastectomy. 5. Left nipple areolar reconstruction. OPERATIVE INDICATIONS: Patient is a 62-year-old white female who underwent mastectomy, chemotherapy, and now requires the above procedures for the indications. The risks and benefits, surgical versus nonsurgical alternatives, as well as the material complications were described to the patient and family on multiple occasions preoperatively. She agree to the planned procedure. The patient was marked in the standing position preoperatively in the holding area with her and her in attendance and agreed to the planned procedure. OPERATIVE PROCEDURE IN DETAIL: Patient was take to the operating room, and after the induction of general anesthesia in the supine position, both arms were extended and padded, Venodyne boots were placed. The entire chest wall, abdomen, and flanks were prepped with ChloraPrep solution over the entire in the usual fashion. At this point, after placement of sterile drapes and a time-out, attention was turned to the left breast mastectomy scar. The markings for nipple areolar reconstruction with double opposing-tab nipple areolar reconstruction was carried out in the standing position, and now, re-outlined and re-measured and confirmed. The right and left breasts were then injected with 1% local lidocaine anesthesia with 1:100,000 epinephrine for hemostasis and comfort. At this point, attention was turned to the right breast. An incision was made in the inframammary fold approximately 3.5-4 cm in length, carried down through the skin into the subcutaneous tissue, down through the subcutaneous tissue to the underlying breast. The retroglandular space was then opened, and a pocket created superiorly from the 2nd rib, medial to the sternal fibers, and laterally to the anterior axillary line in order to place that implant. This was then copiously irrigated with triple antibiotic solution, hemostasis was obtained, and attention was turned to the abdomen. An incision was made after injecting local anesthesia down through the skin into the subcutaneous tissue, through the subcutaneous tissue, down the underlying deep fascia of the rectus abdominis. Tissue was then harvested over the entire abdomen and flanks for reconstructive purposes. This tissue at the deep level was removed, cleansed, repaired, and transferred to the back table. Attention was then turned to the left breast. An incision was made elliptically around the lateral portion of the mastectomy scar down through skin into the subcutaneous tissue creating a block of tissue which was removed and sent for pathologic diagnosis. This was then attended to medially where the nipple areolar complex was incised. Using a double opposing-tab nipple areolar reconstruction technique, incisions were made using the scalpel down through the skin to the subcutaneous tissue. Then, the flaps were raised in the usual fashion for a nipple reconstruction. These flaps were raised to the base leaving the vascular supply inferiorly. At this point, the flaps were transferred one upon the other, and then, sutured using 3-0 Biosyn suture in interrupted fashion creating the nipple complex itself. Multiple sutures were placed, and then, the donor site was closed with 3-0 Biosyn sutures in interrupted fashion. The nipple areolar reconstruction was finished using 3-0 Biosyn and 5-0 plain catgut suture in a running fashion over the nipple tab itself and over the donor site closure. Attention was then turned back to the right breast again. An implant was chosen for the right breast, being a Natrell 410 highly cohesive anatomically shaped silicone-filled breast implant of style FF 185-mL volume. This was placed into the right breast pocket and showed good shape. The tissue for reconstruction was then transferred to the right breast in the superior, medial, and central portions of the right breast, and then independently, it was transferred to the superior, medial, and central portions of the left breast. Good shape and contour was seen in the sitting position. Both wounds were then closed, the right breast with 3-0 Biosyn suture on the deep tissue, 3-0 in the deep dermal fashion and 4-0 in the subcuticular fashion. The donor site on the abdomen was closed with interrupted and running sutures, and all wounds were dressed sterilely with Dermabond and Steri-Strip dressing. The patient was placed into a Surgi-Bra on the table, awakened, transferred to the bed, and taken to the recovery room in a satisfactory condition. JERE GILLIS M.D. [id number]
[2017-05-10 12:14] VITALS: BP 120/76; PULSE 56
== END 2017-05-10 12:05 | disposition home or self-care (01) ==
LOC: FASU 05:54
PROVIDERS: ATTEND Plastic Surgery
PROC: 0HX5XZZ Transfer Chest Skin, External Approach (ICD-10-PCS; 2017-05-10)
PROC: 0HRV07Z Replacement of Bilateral Breast with Autologous Tissue Substitute, Open Approach (ICD-10-PCS; principal; 2017-05-10 08:03)
PROC: 0H0T0JZ Alteration of Right Breast with Synthetic Substitute, Open Approach (ICD-10-PCS; 2017-05-10 08:03)
DX: N65.1 Disproportion of reconstructed breast (principal); M95.4 Acquired deformity of chest and rib; Z90.13 Acquired absence of bilateral breasts and nipples; Z92.21 Personal history of antineoplastic chemotherapy
CPT/HCPCS: 94760

== ENCOUNTER 2017-11-08 11:51 | Day surgery (SDC) | payer BC, OTHER ==
[2017-11-01 12:21] VITALS: BMI 25.7
--- NOTE | 2017-11-05 10:27 | HP ---
Admitting History and Physical - Primary Care Physician PCP: Hollis Venegas - Admission Chief Complaint: Left breast cancer S/P chemptherapy History of Present Illness: 62 year old postmenapausal female S/P completion left mastectomy for an invasive ductal carcinoma and direct implant reconstruction with right portacath for chemotherapy 08/2016. She also underwent left nipple reconstruction and right breast augmentation. She has completed chemotherapy and is here for portacatheter removal. History Source: Patient Limitations to Obtaining History: No Limitations - Past Medical History Gastrointestinal: Yes: Inflamatory Bowel Disease (Ulcerative colitis at age 32 recent bx of polyp path pending) - Past Surgical History Past Surgical History: Yes: Breast Biopsy (exc of left breast mass 2009-benign) , (4), Mastectomy Additional Past Surgical History: Left breast wide excision invasive ductal carcinoma with positive margins completion left mastectomy with reconstruction and right breast augmentation chemotherapy with herceptin and perjeta 08/2016 - Smoking History Smoking history: Never smoked Have you smoked in the past 12 months: No - Alcohol/Substance Use Hx Alcohol Use: No Home Medications - Allergies Allergies/Adverse Reactions: Allergies Allergy/AdvReac Type Severity Reaction Status Date / Time No Known Drug Allergies Allergy Verified 11/01/17 12:14 - Home Medications Home Medications: Ambulatory Orders Lactobacillus Acidophilus [Probiotic Acidophilus] 1 each PO DAILY 05/04/17 Letrozole 2.5 mg PO HS 05/04/17 Family Disease History - Family Disease History Family Disease History: CA: Grandparent (pat GM breast ca ?age), Sister (Breast ca age 37 BRCA neg no PEDRO) Physical Examination Constitutional: Yes: Well Nourished Breast(s): Yes: Other (Left completion mastectomy,nipple reconstruction with right breast augmentation,no palpable masses no axillary adenopathy or infection.) Problem List - Problems (1) Breast cancer, left breast Code(s): C50.912 - MALIGNANT NEOPLASM OF UNSPECIFIED SITE OF LEFT FEMALE BREAST Qualifiers: Breast location: overlapping sites of breast Qualified Code(s): C50.812 - Malignant neoplasm of overlapping sites of left female breast Assessment/Plan Life port removal
[2017-11-08] MEDS ORDERED: MIDAZOLAM HCL 2 MG/2 ML SINGLE DOSE VIAL ONE (14:01)
[2017-11-08] MEDS ORDERED: DEXAMETHASONE SOD PHOSPHATE 4 MG/1 ML VIAL ONE (14:34)
[2017-11-08] MEDS ORDERED: ONDANSETRON 4 MG/2 ML VIAL ONE (14:34)
[2017-11-08] MEDS ORDERED: ceFAZolin SODIUM 1 GM VIAL ONE (14:34)
[2017-11-08] MEDS ORDERED: DESFLURANE GAS 240 ML BOTTLE IH ONE (14:39)
[2017-11-08] MEDS ORDERED: ePHEDrine SULFATE 50 MG/1 ML AMPULE ONE (14:41)
[2017-11-08] MEDS ORDERED: LIDOCAINE 1%/EPI 1:100000 (20 ML MULTI DOSE VIAL) ONE (14:47)
[2017-11-08] MEDS ORDERED: oxyCODONE HCL 5 MG TABLET PO PRN (15:43)
[2017-11-08] MEDS ORDERED: ONDANSETRON 4 MG/2 ML VIAL IVPUSH PRN (15:43)
[2017-11-08] MEDS ORDERED: LACTATED RINGERS SOLUTION 1,000 ML IV SCH (15:45)
[2017-11-08 17:03] VITALS: BP 112/66; PULSE 88; TEMP 97.9
--- NOTE | 2017-11-08 23:41 | OP ---
DATE OF OPERATION: 11/08/2017 PREOPERATIVE DIAGNOSIS: Left breast cancer status post mastectomy and chemotherapy. POSTOPERATIVE DIAGNOSIS: Left breast cancer status post mastectomy and chemotherapy. PROCEDURE: Removal of a right-sided subclavian vein Port-A-Cath as well as revision of left breast reconstruction. ANESTHESIA: General laryngeal mask airway anesthesia. PRIMARY SURGEON: Jere Venegas M.D. PRIMARY SURGEON: Left breast revision of reconstruction, Jere Gillis M.D. COMPLICATIONS: There were no complications. Briefly, the patient is a 62-year-old G5, P4, post menopausal white female of [place] and [place] descent. She has a family history with her sister who had breast cancer at age 37, paternal cousin had breast cancer at age 50. The patient herself was diagnosed with an overlapping left breast cancer back in the beginning of 2016 and eventually required a mastectomy, and underwent chemotherapy to a right sided Port-A-Cath including Herceptin for a full year. She now presents for removal of the right-sided subclavian vein Port-A-Cath as well as revision of her left breast reconstruction by Dr. Gillis. The patient was brought in through ambulatory surgery on 11/08/2017. In the holding area, site verification was made and informed consent was obtained. She was marked preoperatively by the plastic surgeon. She was brought into the operating room and laid on the OR table in the supine position. Venodynes were placed on the lower extremities prior to induction. Both breasts were thoroughly prepped and draped in the usual fashion with the upper right chest wall prepped in the field. She underwent general laryngeal mask airway anesthesia. I instilled 1% lidocaine directly over the Port-A-Cath in the upper right chest wall and the previous Port-A-Cath incision was excised through a small elliptical incision removing the scar tissue. The single lumen Port-A-Cath was easily dissected from the fatty tissue and completely removed intact. The capsule around the Port-A-Cath was removed as well, and hemostasis was achieved using electrocautery. The subcutaneous tissue was closed using interrupted 3-0 Vicryl suture, and the skin was closed using interrupted 3-0 deep dermal Vicryl suture and a running 4-0 subcuticular Monocryl suture. Dermabond was placed over the wound. The patient tolerated procedure well without difficulty, and the rest of the procedure with the revision of the left breast implant reconstruction will be dictated separately by Dr. Gillis. All sponge, needle counts were correct at this point in the cast and estimated blood loss was minimal. The patient will finish the procedure with Dr. Gillis and then be recovered and discharged home the same day once discharge criteria are met. She is to follow up in the office in 1 week for a forma wound pathology check. Again, all sponge, needle counts were correct, and estimated blood loss was minimal. JERE VENEGAS M.D. [id number]
--- NOTE | 2017-11-11 19:24 | OP ---
DATE OF OPERATION: 11/08/2017 SURGEON: Jere Gillis MD CERTIFIED [employer] SURGEON: MARCO Kumar PREOPERATIVE DIAGNOSIS: Acquired left chest wall deformity, status post left mastectomy with reconstruction. OPERATIVE PROCEDURE: 1. Reconstruction of left breast with other technique. 2. Correction of asymmetry of chest wall with capsulorrhaphy and modification. POSTOPERATIVE DIAGNOSIS: Acquired left chest wall deformity, status post left mastectomy with reconstruction. OPERATIVE PROCEDURE INDICATION: The patient is a young woman who underwent left breast mastectomy and now presents with gross asymmetry of the chest wall and also mechanical complication of the breast implant with malposition. The risks and benefits of surgical versus non-surgical alternatives as well as material complications of the above procedures were described to the patient on multiple occasions, including today in the holding area. This is a combined dictation with Dr. Jere Venegas, who performed removal of an intravenous port on the chest wall at the same time, and will be dictated under separate cover. OPERATIVE PROCEDURE IN DETAIL: The patient was taken to the operating room and after induction of general anesthesia in supine position, both arms were extended and padded. Venodyne boots were placed. The entire chest wall, abdomen and flank area was harvested for reconstructive procedure and the procedure began by Dr. Venegas operating independently on the right breast and I began the procedure on the left breast. The patient had prior mastectomy with removal of the nipple-areolar reconstruction. The tissue was injected for the mastectomy scar in the left breast down through the skin to the subcutaneous tissue and then an incision was made, after topical anesthesia and hemostasis, down through the skin and subcutaneous tissue. At this point, I performed a capsulotomy, incising the capsule along the course of the mastectomy scar and then dissecting the implant into a medial position in order to modify the reconstructed breast. After injection of 1% local lidocaine anesthesia and 1:100,000 epinephrine, an incision was made into the chest wall laterally and tissue was then harvested for reconstructive purposes. The tissue was harvested in a deep plane along the lateral chest wall and upper abdomen by incising down into the area just above the fascia along the latissimus dorsi and external oblique facia including the rectus fascia. The tissue was then transferred to the back table, prepared and readied for reconstructive purposes. At this point, injection of 1% local anesthesia was carried out along the lateral gutter inside the capsule and pocket, and then the pocket and capsule was modified by using a number 1 V-Loc suture. By protecting the implant with retraction, a running capsulorrhaphy was performed in the usual fashion after topical anesthesia, closing off the lateral capsule of the breast implant with a running 3-layered closure of V-Loc suture in order to modify the capsule and medialize the implant to create symmetry. Once this was accomplished, the tissue which had been prepared for reconstruction was transferred to the central portion of the left breast. This tissue was used to reconstruct the mechanical defect caused by the mastectomy and placed into the medial, central, superior, and lateral portions of the breast on the left side, matching the right side. The wounds were copiously irrigated with triple-antibiotic solution. Good shape and contour was seen at the end of this part of the procedure. Then the wound was closed in layers using 2-0 PDS suture in interrupted fashion on the deep tissue, 3-0 PDS suture on the deep dermal side, and subcuticular suture with 4-0 Biosyn suture in a 3-layered closure fashion. Dermabond and Steri-Strips were placed over the wound for compression. The patient tolerated procedure well. She was awakened, extubated, and transferred to the recovery room after Dr. Venegas also performed his procedure. JERE GILLIS M.D. [id number]
--- NOTE | 2017-11-13 15:17 | PATH ---
Surgical Pathology Report Patient Name: JESENIA COVINGTON [facility]. Rec. #: [id number] /Age/Gender: 1955 (Age: 62) / F Account: [id number] Location: [facility] AMBULATORY Taken: 11/08/2017 Received: 11/08/2017 Reported: 11/13/2017 Physicians: Hollis Venegas M.D. Specimen(s) Re[facility] Clinical History History of left breast cancer Final Diagnosis PORT-A-CATH, REMOVAL: PORT-A-CATH, DESCRIBED (GROSS EXAMINATION ONLY). Electronically Signed Vicki Isabel M.D. Gross Description Received fresh labeled "Port-A-Cath," is a 2.7 x 2.5 x 1.5 cm purple, triangular device, consistent with a Port-A-Cath. The specimen has the following inscription: "BARD [id number]." There is an 18 cm in length portion of white tubing extending from one aspect. No soft tissue is present. No sections are submitted, gross only. /11/09/2017 [facility]11/09/2017
== END 2017-11-08 17:00 | disposition home or self-care (01) ==
LOC: FASU 11:51
PROVIDERS: ATTEND Surgery Surgical Oncology
PROC: 0HRU07Z Replacement of Left Breast with Autologous Tissue Substitute, Open Approach (ICD-10-PCS; principal; 2017-11-08 14:37)
PROC: 05H533Z Insertion of Infusion Device into Right Subclavian Vein, Percutaneous Approach (ICD-10-PCS; 2017-11-08 14:37)
DX: C50.812 Malignant neoplasm of overlapping sites of left female breast (principal); Z90.12 Acquired absence of left breast and nipple; Z92.21 Personal history of antineoplastic chemotherapy; M95.4 Acquired deformity of chest and rib
CPT/HCPCS: 88300-TC; 94760